=== PATIENT | female | born 1980 | race Asian ===

== ENCOUNTER 2017-04-16 01:30 | Inpatient (IN) | payer SELFPAY ==
[~2017-04-16] VITALS: Ht 160 cm; Wt 62.6 kg
[2017-04-16 01:55] VITALS: BP 120/74
[2017-04-16] MEDS ORDERED: PROMETHAZINE 25 MG/ML VIAL IVP PRN (02:10)
[2017-04-16] MEDS ORDERED: NALBUPHINE HYDROCHLORIDE 10 MG/ML VIAL IVP PRN (02:10)
[2017-04-16] MEDS ORDERED: OXYTOCIN 20 UNITS/LR PREMIX 1,000 ML IV SCH (02:10)
[2017-04-16] MEDS ORDERED: OXYTOCIN 10 UNITS/ML VIAL IM SCH (02:10)
[2017-04-16] MEDS ORDERED: LACTATED RINGERS 500 ML IV SCH (02:10)
[2017-04-16 03:11] LABS: BASOPHILS % (AUTO) 0.4 % (0.0-2.0); EOSINOPHILS # (AUTO) 0.2 K/uL (0-0.4); EOSINOPHILS % (AUTO) 2.1 % (0.0-4.0); HEMATOCRIT 34.3 % (36-48); HEMOGLOBIN 11.4 g/dL (12.0-16.0); LYMPHOCYTES # (AUTO) 1.3 K/uL (2.5-16.5); LYMPHOCYTES % (AUTO) 14.1 % (20.5-51.1); MEAN CORPUSCULAR HEMOGLOBIN 30 pg (27-31); MEAN CORPUSCULAR HGB CONC 33 g/dL (33-37); MEAN CORPUSCULAR VOLUME 89 fL (80-94); MONOCYTES # (AUTO) 0.5 K/uL (0.8-1.0); MONOCYTES % (AUTO) 5.1 % (1.7-9.3); NEUTROPHILS # (AUTO) 7.5 K/uL (1.8-7.7); NEUTROPHILS % (AUTO) 78.3 % (42.2-75.2); PLATELET COUNT (AUTO) 182 K/uL (140-450); RED BLOOD CELL COUNT(AUTO) 3.85 MIL/uL (4.20-5.40); RED CELL DISTRIBUTION WIDTH 14.3 % (11.6-13.7); WHITE BLOOD COUNT (AUTO) 9.5 K/uL (4.8-10.8)
[2017-04-16 03:13] LABS: APPEARANCE,URINE HAZY (CLEAR); BILIRUBIN,URINE NEGATIVE (NEGATIVE); BLOOD, URINE 2+ (NEGATIVE); COLOR,URINE YELLOW (YELLOW); LEUKOCYTE ESTERASE ,URINE NEGATIVE (NEGATIVE); NITRITE, URINE NEGATIVE (NEGATIVE); PROTEIN,URINE TRACE (NEGATIVE); UGLUCOSE NEGATIVE (NEGATIVE); UROBILINOGEN,URINE 0.2 EU/dL (0.2 - 1)
[2017-04-16] MEDS: LACTATED RINGERS 1,000 ML IV SCH ×2 (03:15→05:50)
[2017-04-16 03:30] LABS: BACTERIA,URINE 2+ /HPF (None Seen); RBC,URINE 0-5 (RARE) /HPF (0-5); WBC,URINE 16-25 (MOD) /HPF (0-5)
[2017-04-16] MEDS ORDERED: OXYTOCIN 20 UNITS/LR PREMIX 1,000 ML IV ONE (04:17)
[2017-04-16] MEDS ORDERED: IRON65TA11 PO (05:15)
[2017-04-16] MEDS ORDERED: ROPIVACAINE 0.2%/NS PREMIX 250 ML EPI ONE (05:52)
[2017-04-16] MEDS ORDERED: ROPIVACAINE 0.2%/NS PREMIX 250 ML EPI SCH (06:00)
[2017-04-16] MEDS ORDERED: OXYTOCIN 10 UNITS/ML VIAL ONE (06:09)
[2017-04-16] MEDS ORDERED: WITCH HAZEL 40 PAD PACKAGE TP PRN (07:45)
[2017-04-16] MEDS ORDERED: BENZOCAINE/MENTHOL 20%-0.5% 60 GM CAN TP PRN (07:45)
[2017-04-16] MEDS ORDERED: IBUPROFEN 800 MG TAB PO PRN (07:45)
[2017-04-16] MEDS ORDERED: TEMAZEPAM 15 MG CAP PO PRN (07:45)
[2017-04-16] MEDS ORDERED: HYDROcodone/APAP 5/325 MG 1 TAB TAB PO PRN (07:45)
[2017-04-16] MEDS ORDERED: oxyCODONE/APAP 5/325 MG 1 TAB TAB PO PRN (07:45)
[2017-04-16] MEDS ORDERED: MEASLES, MUMPS, AND RUBELLA 1 VIAL SQVAC PRN (07:45)
[2017-04-16] MEDS ORDERED: DOCUSATE SOD/SENNA 50/8.6 MG 1 TAB PO SCH (21:00)
[2017-04-17 05:50] LABS: HEMATOCRIT 33.7 % (36-48); HEMOGLOBIN 11.2 g/dL (12.0-16.0)
--- NOTE | 2017-04-17 10:03 | NUR ---
PATIENT HAS BEEN SCREENED AND CATEGORIZED LOW NUTRITION RISK. PATIENT WILL BE SEEN WITHIN 7 DAYS OF ADMISSION. 04/22/[address]
== END 2017-04-17 16:20 | disposition home or self-care (01) | DRG 775 ==
LOC: MFCC 01:30 → MLD 03:31 → MFCC 10:09
PROVIDERS: ADMIT Obstetrics & Gynecology; ATTEND Obstetrics & Gynecology
PROC: 10E0XZZ Delivery of Products of Conception, External Approach (ICD-10-PCS; principal; 2017-04-16)
PROC: 0HQ9XZZ Repair Perineum Skin, External Approach (ICD-10-PCS; 2017-04-16)
PROC: 10907ZC Drainage of Amniotic Fluid, Therapeutic from Products of Conception, Via Natural or Artificial Opening (ICD-10-PCS; 2017-04-16)
PROC: 00HU33Z Insertion of Infusion Device into Spinal Canal, Percutaneous Approach (ICD-10-PCS; 2017-04-16)
PROC: 3E0R3CZ (ICD-10-PCS; 2017-04-16)
DX: O70.0 First degree perineal laceration during delivery (principal); Z3A.38 38 weeks gestation of pregnancy; Z37.0 Single live birth; Z28.21 Immunization not carried out because of patient refusal; Z88.0 Allergy status to penicillin; Z83.3 Family history of diabetes mellitus; Z82.49 Family history of ischemic heart disease and other diseases of the circulatory system
CPT/HCPCS: 36415; 81001; 85018; 85025; 86592; 86886; 86900; 86901; 87086; J2590; J2795; J7120